=== PATIENT | female | born 1980 | race Caucasian/White ===

== ENCOUNTER 2016-08-21 17:47 | Emergency (ER) | payer OTHER ==
[~2016-08-21] VITALS: Ht 157.5 cm; Wt 87.5 kg
[2016-08-21 17:49] VITALS: Ht 157.5 cm; Wt 87.5 kg
[2016-08-21] MEDS ORDERED: CETI10CA PO (18:45)
[2016-08-21] MEDS ORDERED: BENZ100C70 PO (18:45)
[2016-08-21] MEDS ORDERED: IBUP-1542 PO (18:45)
[2016-08-21] MEDS ORDERED: ALBU8.5H3 INH (18:45)
[2016-08-21] MEDS ORDERED: AZIT250T94 PO (18:45)
[2016-08-21] MEDS ORDERED: LOSA25TA5 PO (19:03)
--- NOTE | 2016-08-21 19:05 | ERD ---
ER Documentation Chief Complaint Date/Time DATE: 08/21/16 TIME: 19:01 Chief Complaint COUGH X 3 weeks HX HTN HPI 35-year-old female presents here in emergency department for complaint of cough for 3 weeks. Patient has been having dry cough, on and off wheezing at times. Patient does not cough up any phlegm or blood. Patient denies any fever or chills but patient denies any chest or palpitations. Patient denies any dizziness. Patient denies any headache. Patient denies any sick contacts. Patient did not take any medication to help with symptoms. Patient has history of hypertension, currently taking losartan for this, last took medications this morning. Patient did not see primary care doctor for adjustment of medications recently. ROS All systems reviewed and are negative except as per history of present illness. Medications Home Meds Active Scripts Azithromycin* (Zithromax*) 250 Mg Tablet, 250 MG PO .ZPACK DIRECTED, #6 TAB TAKE 500 MG (2 TABS) THE FIRST DAY THEN 250 MG (1 TAB) DAYS 2-5 Prov:PEGGY ALVES NP 08/21/16 Ibuprofen* (Motrin*) 600 Mg Tab, 600 MG PO Q6H Y for PAIN AND OR ELEVATED TEMP, #30 TAB Prov:PEGGY ALVES NP 08/21/16 Cetirizine Hcl* (Zyrtec*) 10 Mg Capsule, 10 MG PO DAILY, #30 TAB.CHEW Prov:PEGGY ALVES NP 08/21/16 Benzonatate* (Tessalon Perle*) 100 Mg Capsule, 100 MG PO Q8H Y for COUGH, #30 CAP Prov:PEGGY ALVES NP 08/21/16 Albuterol Sulfate* (Proair HFA*) 8.5 Gm Hfa.aer.ad, 2 PUFF INH Q4H Y for WHEEZING AND SOB, #1 INHALER Prov:PEGGY ALVES NP 08/21/16 Reported Medications Losartan Potassium* (Losartan Potassium*) Unknown Strength Tablet, PO DAILY, TAB 08/21/16 Allergies Allergies: Coded Allergies: No Known Drug Allergy (Unverified Allergy, Unknown, 11/16/14) PMhx/Soc Hx Cardiac Disorders: Yes (HTN) Hx Alcohol Use: No Hx Substance Use: No Hx Tobacco Use: No FmHx Family History: No coronary disease, No diabetes, No other Physical Exam Vitals Vital Signs Date Time Temp Pulse Resp B/P Pulse Ox O2 Delivery O2 Flow Rate FiO2 08/21/16 17:49 98.2 100 18 170/103 99 Physical Exam GENERAL: The patient is well developed and appropriate for usual state of health, in no apparent distress. CHEST: Clear to auscultation bilaterally. There are no rales, wheezes or rhonchi. HEART: Regular rate and rhythm. No murmurs, clicks, rubs or gallops. No S3 or S4. ABDOMEN: Soft, nontender and nondistended. Good bowel sounds. No rebound or guarding. No gross peritonitis. No gross organomegaly or masses. No Hawthorne sign or McBurney point tenderness. BACK: No midline or flank tenderness. EXTREMITIES: Equal pulses bilaterally. There is no peripheral clubbing, cyanosis or edema. No focal swelling or erythema. Full range of motion. Grossly neurovascularly intact. NEURO: Alert and oriented. Cranial nerves 2-12 intact. Motor strength in all 4 extremities with 5/5 strength. Sensation grossly intact. Normal speech and gait. SKIN: There is no apparent rash or petechia. The skin is warm and dry. HEMATOLOGIC AND LYMPHATIC: There is no evidence of excessive bruising or lymphedema. No gross cervical, axillary, or inguinal lymphadenopathy. Procedures/MDM Medical Decision Making: Patient symptoms are most likely consistent with acute bronchitis possibly a caused by atypical infection. There is low suspicion for Pneumonia at this time since patients lungs sounds are clear, patient O2 saturation is normal and patient doesnt show any respiratory distress. Radiology exam is not indicated at this time. There is low suspicion for other cardiopulmonary emergencies at this time such as CHF, Pulmonary Embolism, Pneumothorax,or any other cardiopulmonary emergencies at this time. There is low suspicion for sepsis. Patient appears well and is hemodynamically stable. Fever is controlled with medicines. Patient's blood pressure was elevated (>120/80) but appears stable without evidence of hypertension emergency or urgency. The patient was counseled about the risks of hypertension and urged to pursue outpatient monitoring and therapy within a week with their primary care physician. Disposition: Home. Condition: Stable Prescriptions: Azithromycin, ibuprofen, Zyrtec, Tessalon Perles, albuterol Instructions: Patient is advised to take medications as prescribed. Patient is advised to rest. Patient advised to increase fluid intake, do humidifier at home and if possible, do salt water gargles. Patient is advised that if symptoms are worse, shortness of breath, uncontrolled fever, stridor, vomiting, worst signs and symptoms to return to emergency department immediately. Otherwise, patient is advised to follow up with primary doctor in 5-7 days. Departure Diagnosis: Primary Impression: Acute bronchitis Bronchitis organism: unspecified organism Qualified Code: J20.9 - Acute bronchitis, unspecified organism Additional Impression: Hypertension Hypertension type: unspecified secondary hypertension Qualified Code: I15.9 - Secondary hypertension Condition: Stable Patient Instructions: High Blood Pressure (Hypertension), Bronchitis, Antiobiotic Treatment (Adult) Additional Instructions: Patient's blood pressure was elevated (>120/80) but appears stable without evidence of hypertension emergency or urgency. The patient was counseled about the risks of hypertension and urged to pursue outpatient monitoring and therapy within a week with their primary care physician. PEGGY ALVES NP August 21, 2016 19:05
== END 2016-08-21 18:45 | disposition home or self-care (01) ==
LOC: E/R 17:47
DX: J20.9 Acute bronchitis, unspecified (principal); I15.9 Secondary hypertension, unspecified; I10 Essential (primary) hypertension
CPT/HCPCS: 99284